=== PATIENT | female | born 1940 | race Caucasian/White ===

== ENCOUNTER 2022-04-13 13:14 | Emergency (ER) | payer MEDICARE, MEDICAID ==
[~2022-04-13] VITALS: Ht 162.6 cm; Wt 90.9 kg
[~2022-04-13 13:14] MED LIST: CHOL378P13
[2022-04-13 13:24] VITALS: BP 163/74
[2022-04-13] MEDS ORDERED: TETanus/Pertussis (Acell)/Diphther VAC/PF (Tdap-Adult) 0.5ml syringe IMVAC ONE (14:50)
[2022-04-13] MEDS ORDERED: LIDOcaine 1% W/epiNEPHrine 1:200,000 10ml vial IJ ONE (14:50)
[2022-04-13] MEDS ORDERED: LIDOcaine 1% w/EPI 1:100,000 30ml vial (MDV) IJ ONE ×2 (14:55)
[2022-04-13] MEDS ORDERED: HYDROcodone/acetaminophen 5mg/325mg tablet PO ONE (16:45)
== END 2022-04-13 17:30 | disposition home or self-care (01) ==
LOC: ER 13:15
DX: S01.81XA Laceration without foreign body of other part of head, initial encounter (principal); M25.562 Pain in left knee; Z60.2 Problems related to living alone; Z88.6 Allergy status to analgesic agent; W19.XXXA Unspecified fall, initial encounter; Y93.89 Activity, other specified; Y92.89 Other specified places as the place of occurrence of the external cause; Y99.8 Other external cause status
CPT/HCPCS: 12013; 70450; 72125; 73564; 90471; 90715; 99284; J7030; A6449

== ENCOUNTER 2024-03-12 12:55 | Emergency (ER) | payer MEDICARE, MEDICAID ==
[~2024-03-12] VITALS: Ht 162.6 cm; Wt 95.5 kg
[2024-03-12 13:16] VITALS: TEMP 98.4
[2024-03-12 14:26] LABS: BASOPHILS % (AUTO) 0.6 % (0-1); EOSINOPHILS # (AUTO) 0.8 X10'3 (0-0.9); EOSINOPHILS % (AUTO) 10.2 % (0-6); HEMATOCRIT 39.7 % (35.0-45.0); HEMOGLOBIN 13.1 g/dl (12.0-16.0); LYMPHOCYTES # (AUTO) 1.9 X10'3 (1.1-4.8); LYMPHOCYTES % (AUTO) 24.8 % (21-51); MEAN CORPUSCULAR HEMOGLOBIN 31.7 PG (27.0-31.0); MEAN CORPUSCULAR HGB CONC 33.1 g/dL (33.0-36.5); MEAN CORPUSCULAR VOLUME 95.9 FL (78-98); MEAN PLATELET VOLUME 8.8 FL (7.4-10.4); MONOCYTES # (AUTO) 0.6 X10'3 (0-0.9); MONOCYTES % (AUTO) 8.2 % (2-12); NEUTROPHILS # (AUTO) 4.2 X10'3 (1.8-7.7); NEUTROPHILS % (AUTO) 56.2 % (42-75); PLATELET COUNT 214 X10'3 (140-440); RED BLOOD COUNT 4.14 X10'6 (4.20-5.60); RED CELL DISTRIBUTION WIDTH 14.6 % (11.5-14.5); WHITE BLOOD COUNT 7.5 X10'3 (4.5-11.0)
[2024-03-12 14:36] LABS: ALANINE AMINOTRANSFERASE 25 U/L (12-78); ALBUMIN 3.8 G/DL (3.4-5.0); ALBUMIN/GLOBULIN RATIO 0.9 (1.1-1.5); ALKALINE PHOSPHATASE 82 IU/L (46-116); ANION GAP 8 (8-16); ASPARTATE AMINO TRANSFERASE 18 U/L (10-37); BILIRUBIN,DIRECT 0.1 MG/DL (0-0.3); BILIRUBIN,TOTAL 0.4 MG/DL (0.1-1.0); BLOOD UREA NITROGEN 33 MG/DL (7-18); CALCIUM 9.6 MG/DL (8.5-10.1); CHLORIDE 108 MMOL/L (99-107); CREATININE 1.18 MG/DL (0.40-0.90); GLUCOSE 91 MG/DL (70-104); MAGNESIUM 2.5 MG/DL (1.5-2.4); POTASSIUM 4.8 MMOL/L (3.5-5.1); SODIUM 141 MMOL/L (135-145); TOTAL CARBON DIOXIDE 24.8 MMOL/L (24-32); TOTAL PROTEIN 7.9 G/DL (6.4-8.2); eCRCL 30 ML/MIN; eGFR 44 ML/MIN
[2024-03-12 14:50] LABS: BILIRUBIN,URINE NEGATIVE (Neg); CLARITY,URINE CLOUDY (Clear); COLOR,URINE YELLOW (Yellow); GLUCOSE, URINE NEGATIVE (Neg); KETONES,URINE NEGATIVE (Neg); LEUKOCYTE ESTERASE ,URINE SMALL (Neg); NITRITES, URINE POSITIVE (Neg); OCCULT BLOOD,URINE SMALL (Neg); PH,URINE 5.5 (4.8-8.0); PROTEIN,URINE NEGATIVE (Neg); UROBILINOGEN,URINE 0.2 E.U/dL (0.2-1.0)
[2024-03-12 15:00] LABS: SQUAMOUS EPITHELIAL CELL,UR MANY /LPF (FEW)
[2024-03-12 15:01] LABS: BACTERIA,URINE 4+ /HPF (Neg); WBC,URINE 50-100 /HPF (0-4)
[2024-03-12 15:02] LABS: TRANSITIONAL EPI CELLS,URINE FEW /HPF; WBC CLUMPS,URINE MODERATE /HPF (NEGATIVE)
[2024-03-12 15:04] LABS: UA COLLECTION TYPE CLN CATCH MIDSTREAM
[2024-03-12] MEDS ORDERED: SULF1TAB49 PO (15:36)
[2024-03-12] MEDS: CefTRIAXone/D5W-Rocephin 1gm 50 ML IV STA (15:43)
[2024-03-12] MEDS: clindamycin 300mg/D5W 50mL 50 ML IV STA (15:46)
[2024-03-12 16:30] VITALS: BP 168/81; PULSE 66; RESP 21; O2SAT 98
== END 2024-03-12 16:42 | disposition home or self-care (01) ==
LOC: ER 12:56
DX: S80.921A Unspecified superficial injury of right lower leg, initial encounter (principal); L03.115 Cellulitis of right lower limb; A41.9 Sepsis, unspecified organism; M79.604 Pain in right leg; Z88.8 Allergy status to other drugs, medicaments and biological substances; Z60.2 Problems related to living alone; X58.XXXA Exposure to other specified factors, initial encounter; Y93.89 Activity, other specified; Y92.89 Other specified places as the place of occurrence of the external cause; Y99.8 Other external cause status
CPT/HCPCS: 36415; 71045; 80048; 80076; 81001; 83605; 83735; 84145; 85025; 87040; 93005; 96365; 96368; 99291; J0696; J3490